=== PATIENT | male | born 1940 | race Native Hawaiian/Other Pacific Islander ===

== ENCOUNTER 2019-01-05 20:12 | Emergency (ER) | payer SELFPAY ==
--- NOTE | 2019-01-05 20:45 | ERPHSYRPT ---
- History of Present Illness Time Seen by Provider: 01/05/19 20:35 Exam Limitations: no limitations Physician History: 78 y/o white male resident at [facility] for weakness issues. pt went to sit down and missed chair hitting buttocks. painful left hip and knee. unable to stand. skin of left elbow steristripped at long-term. no head or other injury or complaints of pain Occurred: just prior to arrival Reason for Fall: lost balance (missed chair) Injuries/Pain Location: lower extremity (left hip and left knee) Loss of Consciousness: no loss of consciousness Severity of Pain-Max: moderate Severity of Pain-Current: moderate Modifying Factors: Improves With: movement (worsens) Associated Symptoms (Fall): extremity injury, trouble walking, No back pain, No confusion, No chest pain, No dizziness, No muscle spasms Allergies/Adverse Reactions: No Known Drug Allergies Allergy (Unverified 01/05/19 20:49) - Review of Systems Constitutional: No Symptoms Eyes: No Symptoms Ears, Nose, & Throat: No Symptoms Respiratory: No Symptoms Cardiac: No Symptoms Abdominal/Gastrointestinal: No Symptoms Genitourinary Symptoms: No Symptoms Musculoskeletal: Deformity, Fall, Injury (left hip) Neurological: No Symptoms Psychological: No Symptoms Endocrine: No Symptoms Hematologic/Lymphatic: No Symptoms Immunological/Allergic: No Symptoms - Past Medical History Pertinent Past Medical History: Yes Neurological History: No Pertinent History ENT History: No Pertinent History Cardiac History: No Pertinent History Respiratory History: No Pertinent History Endocrine Medical History: No Pertinent History Musculoskeletal History: No Pertinent History GI Medical History: No Pertinent History History: No Pertinent History Psycho-Social History: No Pertinent History Male Reproductive Disorders: No Pertinent History - Past Surgical History Neuro Surgical History: No Pertinent History Cardiac: No Pertinent History Respiratory: No Pertinent History Gastrointestinal: No Pertinent History Genitourinary: No Pertinent History Musculoskeletal: No Pertinent History Male Surgical History: No Pertinent History - Nursing Vital Signs Nursing Vital Signs: Initial Vital Signs Temperature 98.4 F 01/05/19 20:50 Pulse Rate 77 01/05/19 20:50 Respiratory Rate 18 01/05/19 20:50 Blood Pressure 148/95 01/05/19 20:50 O2 Sat by Pulse Oximetry 94 L 01/05/19 20:50 Pain Scale Pain Intensity 3 - Barry Coma Score Best Eye Response (Barry): (4) open spontaneously Best Verbal Response (Barry): (5) oriented Best Motor Response (Bridget): (6) obeys commands Bridget Total: 15 - Physical Exam General Appearance: mild distress, alert, anxiety Head Injury: no evidence of injury, No active bleeding, No contusions, No ecchymosis, No lacerations, No swelling, No tenderness Eye Exam: PERRL/EOMI, eyes nml inspection ENT Exam: airway nml, nml ext.inspection, hearing grossly normal Neck Exam: supple, trachea midline, full range of motion, normal alignment Respiratory/Chest Exam: normal breath sounds, No chest tenderness, No respiratory distress Cardiovascular Exam: normal heart sounds, regular rate/rhythm, normal peripheral pulses, gallop Gastrointestinal Exam: soft, normal bowel sounds, No tenderness Rectal Exam: not done Back Exam: normal inspection, normal range of motion, No CVA tenderness, No vertebral tenderness Extremity Exam: pelvis stable, deformities (left hip pain with ?left lower ext rotated. nv intact. 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, normal mood/affect Skin Exam: other (skin tear left elbow steristrips in place) SpO2 Interpretation: borderline oxygenation O2 Delivery: Room Air Ordered Tests: Active Orders 24 hr Category Date Time Status Brown [Catheter-Langdon Brown] STAT Care 01/05/19 21:06 Active IV Insertion STAT Care 01/05/19 21:03 Active CHEST 1 VIEW (PORTABLE) Stat Exams 01/05/19 21:04 Taken FEMUR Stat Exams 01/05/19 21:04 Taken HIP UNI (2V) INCL PEL IF DONE Stat Exams 01/05/19 21:04 Taken KNEE (1 OR 2 VIEW) Stat Exams 01/05/19 21:04 Taken Medication Summary Generic Name Dose Route Start Last Admin Trade Name Freq PRN Reason Stop Dose Admin Sodium Chloride 1,000 mls @ 50 mls/hr 01/05/19 21:15 01/05/19 21:20 Sodium Chloride 0.9% 1000 Ml IV 02/04/19 21:14 50 mls/hr .Q20H ADRIANA Administration Discontinued Medications Generic Name Dose Route Start Last Admin Trade Name Freq PRN Reason Stop Dose Admin Morphine Sulfate 2 mg 01/05/19 21:03 01/05/19 21:21 Morphine Sulfate 2 Mg Inj IV 01/05/19 21:04 2 mg STAT ONE Administration Morphine Sulfate Confirm 01/05/19 21:12 Morphine Sulfate 2 Mg Inj Administered 01/05/19 21:13 Dose 2 mg .ROUTE .STK-MED ONE Ondansetron HCl 4 mg 01/05/19 21:03 01/05/19 21:20 Zofran 4 Mg/2 Ml Vial IV 01/05/19 21:04 4 mg STAT ONE Administration Ondansetron HCl Confirm 01/05/19 21:12 Zofran 4 Mg/2 Ml Vial Administered 01/05/19 21:13 Dose 4 mg .ROUTE .STK-MED ONE - Progress Progress: improved, pain not gone completely Progress Note: 01/05/19 23:40 pt states hes feeling pretty good right now. i reviewed all xrays. i did not appreciate any acute fx or dislocation. i had vrad read all films. no acute fx or dislocation. Counseled pt/family regarding: lab results, diagnosis, need for follow-up, rad results - Departure Departure Disposition: Extended Care Facility Clinical Impression: Fall, Hip pain, Contusion Condition: Stable Critical Care Time: No Additional Instructions: ice pack to pain sites. use tylenol for pain.
[2019-01-05] MEDS ORDERED: MORPHINE SULFATE 2 MG INJ IV ONE (21:03)
[2019-01-05] MEDS ORDERED: Zofran 4 MG/2 ML VIAL IV ONE (21:03)
[2019-01-05] MEDS ORDERED: Zofran 4 MG/2 ML VIAL ONE (21:12)
[2019-01-05] MEDS ORDERED: Sodium Chloride 0.9% 1000 ML 1,000 ML ONE (21:12)
[2019-01-05] MEDS ORDERED: MORPHINE SULFATE 2 MG INJ ONE (21:12)
[2019-01-05] MEDS ORDERED: Sodium Chloride 0.9% 1000 ML 1,000 ML IV SCH (21:15)
[2019-01-06 00:49] VITALS: BP 116/86; PULSE 86; O2SAT 98
--- NOTE | 2019-01-06 10:59 | XRAY ---
Indication: Pain following fall. Comparison: None AP pelvis and 2 views of the left hip demonstrates nondisplaced left subcapital femur fracture. Elsewhere osteopenia, moderate degenerative changes of both hips, extensive scattered vascular calcifications, and partially visualized bilateral iliac stent grafts. Comment: Preliminary interpretation was made by [facility] who does not report fracture. Telephone report given to Dr. Trivedi in the ER at 1050 hrs. on January 06, 2019.
--- NOTE | 2019-01-06 11:01 | XRAY ---
Indication: Pain following fall. Comparison: None 3 views of the left knee flexed knee with mild osteopenia, moderate/advanced tricompartmental degenerative changes, tibial tuberosity spurring, anterior soft tissue swelling, and heavy scattered vascular calcifications. No other bony, articular, or soft tissue abnormalities. Comment: Preliminary interpretation was made by [facility]. No critical discrepancy.
--- NOTE | 2019-01-06 11:03 | XRAY ---
Indication: Pain following fall. Comparison: None 2 views of the left femur demonstrates nondisplaced subcapital femur fracture. Elsewhere osteopenia, moderate hip degenerative arthropathy with adjacent surgical clips, moderate/advanced knee degenerative arthropathy, and extensive scattered vascular calcifications. Comment: Preliminary interpretation was made by [facility] who does not report fracture. Telephone report given to Dr. Trivedi in the ER at 1050 hrs. on January 06, 2019.
--- NOTE | 2019-01-06 11:13 | XRAY ---
Indication: Cough. Comparison: None Portable chest demonstrates chronic interstitial lung markings without focal infiltrate, consolidation, or large effusion. Heart is borderline enlarged for AP portable technique. Bony thorax intact with osteopenia and degenerative changes. Comment: Preliminary interpretation was made by [facility]. No critical discrepancy.
== END 2019-01-06 01:04 | disposition home or self-care (01) ==
LOC: ED 20:12
DX: M25.552 Pain in left hip (principal); W01.198A Fall on same level from slipping, tripping and stumbling with subsequent striking against other object, initial encounter; M25.562 Pain in left knee
CPT/HCPCS: 36000; 71045; 73502; 73552; 73560; 96360; 96361; 96374; 96375; 99284; J2270; J2405

== ENCOUNTER 2021-01-01 14:28 | Emergency (ER) | payer MEDICARE ==
[2021-01-01 15:36] LABS: Hematocrit 33.8 % (42-50); Hemoglobin 10.8 gm/dl (12.5-18.0); Mean Cell Volume 84.9 fl (78-100); Mean Corpuscular Hemoglobin 27.1 pg (26-32); Mean Platelet Volume 10.1 fl (7.5-11.0); Platelet Count 239 K/mm3 (150-450); Red Blood Count 3.98 M/mm3 (4.1-5.6); Red Cell Distribution Width 18.6 % (11.5-14.0); White Blood Count 10.6 K/mm3 (4.0-10.5)
[2021-01-01 15:57] LABS: ALBUMIN 3.9 g/dL (3.5-5.0); ANION GAP 22.6 MEQ/L (5-15); BILIRUBIN,TOTAL 0.5 mg/dL (0.2-1.3); Calcium 8.9 mg/dL (8.4-10.2); Creatinine 1 6.76 mg/dL (0.66-1.25); EST GLOMERULAR FILTRATION RATE 8.4 ML/MIN; Total Protein 8.2 g/dL (6.3-8.2)
[2021-01-01 16:08] LABS: Potassium 6.7 mmol/L (3.5-5.1)
--- NOTE | 2021-01-01 16:35 | XRAY ---
Indication: Cough and weakness. Comparison: January 05, 2019. Portable chest again demonstrates chronic lung markings without focal infiltrate, consolidation, or large effusion. Heart not enlarged for AP portable technique. Descending aorta remains tortuous. Bony thorax intact again with mild osteopenia and degenerative changes. Impression: Continued nonacute chest with chronic features.
[2021-01-01] MEDS ORDERED: Kayexylate 15 GM/60 ML PO ONE (16:58)
[2021-01-01] MEDS ORDERED: CALCIUM CHLORIDE 10% 1000 MG IV ONE (16:59)
[2021-01-01] MEDS ORDERED: SODIUM BICARBONATE 50 MEQ/50 ML ABBOJECT IV ONE ×2 (17:00→17:12)
[2021-01-01] MEDS ORDERED: D50W 50ML Vial IV ONE (17:01)
[2021-01-01] MEDS ORDERED: HUMULIN R IV ONE (17:02)
[2021-01-01] MEDS ORDERED: HUMULIN R ONE (17:10)
[2021-01-01] MEDS ORDERED: Kayexylate 15 GM/60 ML ONE (17:11)
[2021-01-01] MEDS ORDERED: Sodium Chloride 0.9% 1000 ML 0 ML ONE (17:11)
[2021-01-01] MEDS ORDERED: D50W 50 ml Abboject IV ONE (17:12)
[2021-01-01] MEDS ORDERED: CALCIUM CHLORIDE 10% 1000 MG ONE (17:15)
[2021-01-01] MEDS ORDERED: Sodium Chloride 0.9% 1000 ML 1,000 ML IV STA ×2 (17:24→19:34)
[2021-01-01] MEDS ORDERED: Sodium Chloride 0.9% 1000 ML 1,000 ML ONE ×2 (17:25→19:29)
[2021-01-01 18:26] VITALS: O2SAT 99
--- NOTE | 2021-01-01 19:10 | ERPHSYRPT ---
- History of Present Illness Time Seen by Provider: 01/01/21 15:18 Source: patient, EMS Exam Limitations: no limitations Patient Subjective Stated Complaint: alf nurse states "he was in the hospital for pneumonia abut 5 days ago and he is just getting weaker and weaker. HE has stage IV renal and he is now incontinent." Triage Nursing Assessment: PTpresented alert and oriented X 3, skin wpd pt able to speak in clear full sentences pt in no apparent respiratory distress. pt states he does not get much notice when he has to go to the bathroom. Timing/Duration: yesterday Severity: moderate Associated Symptoms: weakness Allergies/Adverse Reactions: levofloxacin [From Levaquin] Allergy (Unknown, Verified 01/01/21 14:41) Home Medications: Apixaban [Eliquis] 2.5 mg PO DAILY 01/01/21 [History] Budesonide/Formoterol Fumarate [Budesonide-Formoterol 160-4.5] 1 puff IH DAILY 01/01/21 [History] Carvedilol 6.25 mg [Coreg 6.25 MG] 6.25 mg PO BID 01/01/21 [History] Folic Acid 1 mg [Folate 1 mg] 1 mg PO DAILY 01/01/21 [History] Gabapentin 300 mg [Neurontin 300 mg] 300 mg PO DAILY 01/01/21 [History] Hydrocodone/Acetaminophen [Hydrocodone-Acetamin 7.5-325] 1 each PO DAILY PRN 01/01/21 [History] Metformin HCl 500 mg [Glucophage 500 MG] 500 mg PO BIDWM 01/01/21 [History] Potassium Chloride [Klor-Con M10] 10 meq PO DAILY 01/01/21 [History] Sertraline HCl 50 mg [Zoloft 50 mg Tablet] 50 mg PO DAILY 01/01/21 [History] Spironolactone 25 mg [Aldactone 25 MG] 25 mg PO DAILY 01/01/21 [History] Hx Tetanus, Diphtheria Vaccination/Date Given: No Hx Influenza Vaccination/Date Given: Yes (February 2018) Hx Pneumococcal Vaccination/Date Given: Yes Immunizations Up to Date: Yes Travel Risk - International Travel Have you traveled outside of the country in past 3 weeks: No - Coronavirus Screening Are you exhibiting any of the following symptoms?: No Close contact with a COVID-19 positive Pt in past 14-21 Days: No - Vaccine Status Have you recieved a Covid-19 vaccination: Yes 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 - Vaccination Dates Dates if Unknown: unknown - Review of Systems Constitutional: Fatigue, Malaise Eyes: No Symptoms Ears, Nose, & Throat: No Symptoms Respiratory: No Symptoms Cardiac: No Symptoms Abdominal/Gastrointestinal: No Symptoms Genitourinary Symptoms: Incontinence Musculoskeletal: No Symptoms Skin: No Symptoms Neurological: No Symptoms Psychological: No Symptoms Endocrine: No Symptoms Hematologic/Lymphatic: No Symptoms Immunological/Allergic: No Symptoms All Other Systems: Reviewed and Negative - Past Medical History Pertinent Past Medical History: Yes Neurological History: No Pertinent History ENT History: No Pertinent History Cardiac History: Hypertension Respiratory History: COPD Endocrine Medical History: Diabetes Type II Musculoskeletal History: No Pertinent History GI Medical History: No Pertinent History History: No Pertinent History Psycho-Social History: No Pertinent History Male Reproductive Disorders: No Pertinent History - Past Surgical History Past Surgical History: Yes Neuro Surgical History: No Pertinent History Cardiac: No Pertinent History Respiratory: No Pertinent History Gastrointestinal: No Pertinent History Genitourinary: No Pertinent History Musculoskeletal: No Pertinent History Male Surgical History: No Pertinent History Other Surgical History: Aortic aneurysm - Social History Smoking Status: Former smoker Exposure to second hand smoke: No Drug Use: none Patient Lives Alone: No (halfway) - Nursing Vital Signs Nursing Vital Signs: Initial Vital Signs Temperature 97.2 F 01/01/21 14:30 Pulse Rate 48 L 01/01/21 14:30 Respiratory Rate 20 01/01/21 14:30 Blood Pressure 129/56 01/01/21 14:30 O2 Sat by Pulse Oximetry 99 01/01/21 14:30 Pain Scale Pain Intensity 0 - Physical Exam General Appearance: no apparent distress, alert Eye Exam: PERRL/EOMI Ears, Nose, Throat Exam: dry mucous membranes, other (thrush) Neck Exam: normal inspection Respiratory Exam: normal breath sounds Cardiovascular Exam: regular rate/rhythm Gastrointestinal/Abdomen Exam: soft, normal bowel sounds Male Genitalia Exam: other (defer) Rectal Exam: deferred Extremity Exam: normal inspection, pelvis stable Neurologic Exam: alert, oriented x 3, cooperative Skin Exam: normal color SpO2: 99 O2 Delivery: Room Air - Course Nursing assessment & vital signs reviewed: Yes EKG Interpreted by Me: RATE (50), A-fib - Radiology Exams Chest X-ray Interpretation: Discussed w/ radiologist, Negative Ordered Tests: Active Orders 24 hr Category Date Time Status EKG-ER Only STAT Care 01/01/21 15:20 Active Brown [Catheter-Eckley Brown] STAT Care 01/01/21 19:29 Ordered CHEST 1 VIEW (PORTABLE) Stat Exams 01/01/21 15:20 Completed BMP Stat Lab 01/01/21 19:03 Completed CBC Stat Lab 01/01/21 15:20 Completed CMP Stat Lab 01/01/21 15:15 Completed MAG [MAGNESIUM] Stat Lab 01/01/21 19:04 Ordered NT PRO BNP Stat Lab 01/01/21 15:15 Completed SODIUM Stat Lab 01/01/21 19:31 Ordered TROPONIN Q3H Lab 01/01/21 15:15 Completed TROPONIN Q3H Lab 01/01/21 18:39 Completed TROPONIN Q3H Lab 01/01/21 21:30 Ordered UA W/RFX UR CULTURE Stat Lab 01/01/21 19:03 Ordered Medication Summary Discontinued Medications Generic Name Dose Route Start Last Admin Trade Name Freq PRN Reason Stop Dose Admin Calcium Chloride 1,000 mg 01/01/21 16:59 01/01/21 17:18 Calcium Chloride 10% 1000 Mg IV 01/01/21 17:00 1,000 mg STAT ONE Administration Calcium Chloride Confirm 01/01/21 17:15 Calcium Chloride 10% 1000 Mg Administered 01/01/21 17:16 Dose 1,000 mg .ROUTE .STK-MED ONE Dextrose 50 ml 01/01/21 17:01 01/01/21 17:23 D50w 50ml Vial IV 01/01/21 17:02 50 ml NOW ONE Administration Dextrose Confirm 01/01/21 17:12 D50w 50 Ml Abboject Administered 01/01/21 17:13 Dose 50 ml IV .STK-MED ONE Sodium Chloride Confirm 01/01/21 17:11 Sodium Chloride 0.9% 1000 Ml Administered 01/01/21 17:12 Dose 1,000 mls @ ud .ROUTE .STK-MED ONE Sodium Chloride 1,000 mls @ 999 mls/hr 01/01/21 17:24 01/01/21 18:42 Sodium Chloride 0.9% 1000 Ml IV 01/01/21 18:24 Infused .Q1H1M STA Infusion Sodium Chloride Confirm 01/01/21 17:25 Sodium Chloride 0.9% 1000 Ml Administered 01/01/21 17:26 Dose 1,000 mls @ ud .ROUTE .STK-MED ONE Insulin Human Regular 10 unit 01/01/21 17:02 01/01/21 17:16 Humulin R IV 01/01/21 17:03 10 unit STAT ONE Administration Insulin Human Regular Confirm 01/01/21 17:10 Humulin R Administered 01/01/21 17:11 Dose 10 unit .ROUTE .STK-MED ONE Sodium Bicarbonate 50 meq 01/01/21 17:00 01/01/21 17:18 Sodium Bicarbonate 50 Meq/50 Ml Abboject IV 01/01/21 17:01 50 meq STAT ONE Administration Sodium Bicarbonate Confirm 01/01/21 17:12 Sodium Bicarbonate 50 Meq/50 Ml Abboject Administered 01/01/21 17:13 Dose 50 meq IV .STK-MED ONE Sodium Polystyrene Sulfonate 30 g 01/01/21 16:58 01/01/21 17:18 Kayexylate 15 Gm/60 Ml PO 01/01/21 16:59 30 g STAT ONE Administration Sodium Polystyrene Sulfonate Confirm 01/01/21 17:11 Kayexylate 15 Gm/60 Ml Administered 01/01/21 17:12 Dose 30 g .ROUTE .STK-MED ONE Lab/Rad Data: Laboratory Result Diagrams 01/01/21 15:20 01/01/21 19:03 Laboratory Results 01/01/21 01/01/21 01/01/21 Range/Units 19:03 18:39 15:20 WBC 10.6 H (4.0-10.5) K/mm3 RBC 3.98 L (4.1-5.6) M/mm3 Hgb 10.8 L (12.5-18.0) gm/dl Hct 33.8 L (42-50) % MCV 84.9 (78-100) fl MCH 27.1 (26-32) pg MCHC 32.0 (32-36) g/dl RDW 18.6 H (11.5-14.0) % Plt Count 239 (150-450) K/mm3 MPV 10.1 (7.5-11.0) fl Sodium 134 L (137-145) mmol/L Potassium 5.6 H (3.5-5.1) mmol/L Chloride 96 L (98-107) mmol/L Carbon Dioxide 24 (22-30) mmol/L Anion Gap 19.3 H (5-15) MEQ/L BUN 118 H (9-20) mg/dL Creatinine 7.27 H (0.66-1.25) mg/dL Estimated GFR 7.7 ML/MIN Glucose 167 H (74-106) mg/dL Calcium 9.9 (8.4-10.2) mg/dL Total Bilirubin (0.2-1.3) mg/dL AST (17-59) U/L ALT (0-50) U/L Alkaline Phosphatase (38-126) U/L Troponin I 0.098 H* (0.000-0.034) ng/mL NT-Pro-B Natriuret Pep (0-1800) pg/mL Serum Total Protein (6.3-8.2) g/dL Albumin (3.5-5.0) g/dL 01/01/21 01/01/21 Range/Units 15:15 15:15 WBC (4.0-10.5) K/mm3 RBC (4.1-5.6) M/mm3 Hgb (12.5-18.0) gm/dl Hct (42-50) % MCV (78-100) fl MCH (26-32) pg MCHC (32-36) g/dl RDW (11.5-14.0) % Plt Count (150-450) K/mm3 MPV (7.5-11.0) fl Sodium 129 L (137-145) mmol/L Potassium 6.7 H* (3.5-5.1) mmol/L Chloride 93 L (98-107) mmol/L Carbon Dioxide 21 L (22-30) mmol/L Anion Gap 22.6 H (5-15) MEQ/L BUN 125 H (9-20) mg/dL Creatinine 6.76 H (0.66-1.25) mg/dL Estimated GFR 8.4 ML/MIN Glucose 143 H (74-106) mg/dL Calcium 8.9 (8.4-10.2) mg/dL Total Bilirubin 0.50 (0.2-1.3) mg/dL AST 27 (17-59) U/L ALT 10 (0-50) U/L Alkaline Phosphatase 91 (38-126) U/L Troponin I 0.114 H* (0.000-0.034) ng/mL NT-Pro-B Natriuret Pep 6170 H (0-1800) pg/mL Serum Total Protein 8.2 (6.3-8.2) g/dL Albumin 3.9 (3.5-5.0) g/dL - Progress Progress: improved Progress Note: 01/01/21 19:16 Acute on chronic renal failure. No prior labs to review here. Today has advanced renal failure with markedly reduced urine output. Looks dehydrated. Hyperkalemia secondary to the renal failure. See orders for treatment. No CHF clinically. Troponin up a small amount, no chest pain, normal EKG. Trying to arrange transfer to nephrology. Dr. Hill accepts at [facility]. CC time 60 minutes for management of ARF and hyperkalemia with transfer. 01/01/21 19:32 - Departure Departure Disposition: Transfer Clinical Impression: Acute renal failure (ARF), Acute hyperkalemia, Volume depletion Condition: Stable Critical Care Time: Yes Critical Care Time(excluding separately billable procedures): Critical 30-74 mins Referrals: KEARA HARRISON MD [Primary Care Provider] -
[2021-01-01 19:14] LABS: ANION GAP 19.3 MEQ/L (5-15); Calcium 9.9 mg/dL (8.4-10.2); Creatinine 1 7.27 mg/dL (0.66-1.25); EST GLOMERULAR FILTRATION RATE 7.7 ML/MIN; Potassium 5.6 mmol/L (3.5-5.1)
[2021-01-01 19:41] VITALS: BP 141/68; PULSE 48
[2021-01-02 07:42] LABS: Appearance SLIGHTLY CLOUDY (CLEAR); Glucose 50 mg/dL (NEGATIVE); Leukocyte Esterase NEGATIVE (NEGATIVE); Nitrite NEGATIVE (NEGATIVE); Protein,Urine Dip 30 (Negative); Specific Gravity 1.011 (1.005-1.025)
[2021-01-02 07:43] LABS: Bilirubin NEGATIVE (NEGATIVE); Blood SMALL Ery/ul (0-5); Ketones NEGATIVE (NEGATIVE); Mucus SLIGHT /HPF (NEGATIVE); Urobilinogen NORMAL mg/dL (0-1)
== END 2021-01-02 07:44 | disposition short-term general hospital (02) ==
LOC: ED 14:28
DX: N17.9 Acute kidney failure, unspecified (principal); E11.22 Type 2 diabetes mellitus with diabetic chronic kidney disease; I12.9 Hypertensive chronic kidney disease with stage 1 through stage 4 chronic kidney disease, or unspecified chronic kidney disease; N18.9 Chronic kidney disease, unspecified; E87.5 Hyperkalemia; E86.9 Volume depletion, unspecified; Z79.899 Other long term (current) drug therapy; Z79.01 Long term (current) use of anticoagulants; J44.9 Chronic obstructive pulmonary disease, unspecified
CPT/HCPCS: 36415; 51702; 71045; 80048; 80053; 81001; 83735; 83880; 84484; 85027; 87086; 93005; 96360; 96374; 99284; 99291; J1815; A9270-GY